=== PATIENT | male | born 1965 | race Caucasian/White ===

== ENCOUNTER 2017-05-09 13:41 | Day surgery (SDC) | payer OTHER ==
[~2017-05-09] VITALS: Ht 177.8 cm; Wt 104.0 kg
[~2017-05-09 13:41] MED LIST: ATORVASTATIN CA40 MG PO; Flonase 0.05% N16 GM; LISI20 PO; Multiple Vitam1 EAC1 PO; Prilosec20 MG PO
[2017-05-09] MEDS ORDERED: [UNRECOGNIZED DRUG - OTHER] PO (14:16)
== END 2017-05-09 16:40 | disposition home or self-care (01) ==
LOC: ORSCSDS 13:41
PROVIDERS: Internal Medicine Gastroenterology
PROC: 0D758ZZ Dilation of Esophagus, Via Natural or Artificial Opening Endoscopic (ICD-10-PCS; principal; 2017-05-09 15:00)
PROC: 0DB58ZX Excision of Esophagus, Via Natural or Artificial Opening Endoscopic, Diagnostic (ICD-10-PCS; principal; 2017-05-09 15:00)
DX: R13.10 Dysphagia, unspecified (principal); R12 Heartburn; I10 Essential (primary) hypertension; E78.00 Pure hypercholesterolemia, unspecified; R73.9 Hyperglycemia, unspecified; F17.210 Nicotine dependence, cigarettes, uncomplicated; Z79.899 Other long term (current) drug therapy
CPT/HCPCS: 88305; J7120

== ENCOUNTER 2021-06-15 12:49 | Day surgery (SDC) | payer BC, OTHER ==
[~2021-06-15] VITALS: Ht 177.8 cm; Wt 104.7 kg
[~2021-06-15 12:49] MED LIST changes: +[UNRECOGNIZED DRUG - OTHER] PO
== END 2021-06-15 15:25 | disposition home or self-care (01) ==
LOC: ORSCSDS 12:49
PROVIDERS: Internal Medicine Gastroenterology
PROC: 0DBN8ZX Excision of Sigmoid Colon, Via Natural or Artificial Opening Endoscopic, Diagnostic (ICD-10-PCS; principal; 2021-06-15 14:00)
PROC: 0DBL8ZX Excision of Transverse Colon, Via Natural or Artificial Opening Endoscopic, Diagnostic (ICD-10-PCS; principal; 2021-06-15 14:00)
PROC: 0DBK8ZX Excision of Ascending Colon, Via Natural or Artificial Opening Endoscopic, Diagnostic (ICD-10-PCS; principal; 2021-06-15 14:00)
DX: Z12.11 Encounter for screening for malignant neoplasm of colon (principal); Z86.010 Personal history of colon polyps; D12.5 Benign neoplasm of sigmoid colon; D12.2 Benign neoplasm of ascending colon; K57.30 Diverticulosis of large intestine without perforation or abscess without bleeding; I10 Essential (primary) hypertension; G47.33 Obstructive sleep apnea (adult) (pediatric); K21.9 Gastro-esophageal reflux disease without esophagitis; Z79.899 Other long term (current) drug therapy
CPT/HCPCS: 88305; J2405; J2704; J7120